=== PATIENT | male | born 1960 | race African-American/Black ===

== ENCOUNTER 2019-01-18 08:17 | Inpatient (IN) | payer OTHER ==
[2019-01-16 17:01] VITALS: BMI 28.6
[2019-01-18] MEDS ORDERED: HEPARIN NA (PORCINE) 5,000 UNITS/ML 1ML VIAL SQ ONE (09:15)
[2019-01-18] MEDS ORDERED: CLINDAMYCIN 900 MG PREMIX IVPB 900 MG/50 ML BAG IVPB ONE (09:30)
--- NOTE | 2019-01-18 09:36 | HP ---
History & Physical Update - History History: No Change - Physical Physical: No Change - Assessment Assessment: No Change - Plan Plan: No Change (Initial H&P completed by Dr. Matias Weinberg on 01/04/19. Complete/accurate and UTD. No new complaints or medication. Here today for elective Robotic prostatectomy.)
[2019-01-18] MEDS ORDERED: ONDANSETRON 4 MG/2 ML VIAL IVPB PRN (11:05)
[2019-01-18] MEDS ORDERED: diphenhydrAMINE HCL 50 MG CAPSULE PO PRN (11:05)
[2019-01-18] MEDS ORDERED: OXYBUTYNIN CHLORIDE 5 MG TABLET PO PRN (11:05)
[2019-01-18] MEDS ORDERED: SODIUM CHLORIDE 1,000 ML IV SCH (11:15)
[2019-01-18] MEDS ORDERED: fentaNYL CITRATE 250 MCG/5 ML VIAL ONE (11:27)
[2019-01-18] MEDS ORDERED: MIDAZOLAM HCL 2 MG/2 ML SINGLE DOSE VIAL ONE (11:27)
[2019-01-18] MEDS ORDERED: BUPIVACAINE HCL/PF 0.5% (5 MG/ML) 30 ML VIAL IJ ONE (11:32)
[2019-01-18] MEDS ORDERED: DESFLURANE GAS 240 ML BOTTLE IH ONE (12:14)
[2019-01-18] MEDS ORDERED: CLINDAMYCIN 900 MG PREMIX BAG IVPB ONE (12:18)
[2019-01-18] MEDS ORDERED: VECURONIUM BROMIDE 10 MG VIAL ONE (12:31)
[2019-01-18] MEDS ORDERED: EPHEDRINE SULFATE/0.9% NACL/PF 50 MG/10 ML SYRINGE NR ONE (14:02)
[2019-01-18] MEDS ORDERED: ePHEDrine SULFATE 50 MG/1 ML AMPULE ONE ×2 (14:03→15:04)
[2019-01-18] MEDS ORDERED: ROCURONIUM BROMIDE 50 MG/5 ML SYRINGE ONE (14:44)
[2019-01-18] MEDS ORDERED: NEOSTIGMINE METHYLSULFATE 0.5 MG/ML - 10 ML MDV ONE (15:04)
[2019-01-18] MEDS ORDERED: GLYCOPYRROLATE 0.2 MG/1 ML VIAL ONE (15:04)
[2019-01-18] MEDS ORDERED: SIMETHICONE 80 MG TAB.CHEW (FP) PO PRN (15:23)
--- NOTE | 2019-01-18 15:58 | OP ---
Operative Note - Note: Operative Date: 01/18/19 Pre-Operative Diagnosis: Prostate Cancer Operation: Robotic prostatectomy, pelvic node dissection Post-Operative Diagnosis: Same as Pre-op Surgeon: Juan Silverio Director Of Global Talent: Silvio Gómez Anesthesiologist/CULINARY ART TEACHER: Jacki Arroyo Anesthesia: General Specimens Removed: Prostate, seminal vesicles, distal urethra (margin) Estimated Blood Loss (mls): 300 Drains & Tubes with Location: MAHESH Drains, Volume Out (mls): 0 (keller) Fluid Volume Replaced (mls): 1,500
[2019-01-18] MEDS ORDERED: LACTATED RINGERS SOLUTION 1,000 ML IV SCH (17:45)
[2019-01-18] MEDS: oxyCODONE HCL 5 MG TABLET PO PRN (18:50)
[2019-01-18] MEDS: ACETAMINOPHEN 1000 MG/100 ML VIAL (NON FORMULARY) IVPB SCH (20:54)
[2019-01-18] MEDS: CLINDAMYCIN 600MG PREMIX IVPB 600 MG/50 ML BAG IVPB SCH (20:54)
[2019-01-18] MEDS: HEPARIN NA (PORCINE) 5,000 UNITS/ML 1ML VIAL SQ SCH (21:13)
[2019-01-18] MEDS: DOCUSATE SODIUM 100 MG CAPSULE (FP) PO SCH (21:13)
--- NOTE | 2019-01-18 21:50 | SURG ---
[facility] Weigh[facility] Note City Weighmaster: Silvio Gómez PA-C Date of Service: 01/18/19 Diagnosis: Prostate Cancer Procedure: Robotic prostatectomy, pelvic lymph node dissection I was present for the entirety of the operative procedure. For further detail, please refer to operative report. Visit type - Case Type Case Type: Scheduled - New patient This patient is new to me today: Yes Date on this admission: 01/18/19
[2019-01-18] MEDS ORDERED: HEPARIN NA (PORCINE) 5,000 UNITS/ML 1ML VIAL SQ SCH (22:00)
[2019-01-19] MEDS: ACETAMINOPHEN 1000 MG/100 ML VIAL (NON FORMULARY) IVPB SCH ×2 (02:24→08:48)
[2019-01-19] MEDS: CLINDAMYCIN 600MG PREMIX IVPB 600 MG/50 ML BAG IVPB SCH ×2 (04:13→12:28)
--- NOTE | 2019-01-19 07:52 | PN ---
Progress Note (short form) - Note Progress Note: POD 1, s/p Robotic prostatectomy, pelvic node dissection Pt seen and examined. Reports pelvic pain overnight. Improved with pain meds. Has not been oob, keller in place. Tolerating clears, no n/v. Denies cp/sob. Feels like he has a lot of gas, has not passed any flatus yet. Vital Signs Temp 98.4 F 01/19/19 06:10 Pulse 62 01/19/19 06:10 Resp 20 01/19/19 06:10 BP 109/69 01/19/19 06:10 Pulse Ox 100 01/18/19 21:00 Intake & Output 01/18/19 01/18/19 01/19/19 11:59 23:59 11:59 Intake Total 1999 1150 Output Total 925 500 Balance 1999 225 -500 Weight 194 lb Intake: IV 2000 700 Normal Saline - 1,000 ml 300 @ 75 mls/hr IV ASDIR JAMAL Rx#:[id number] IVPB 50 Oral 400 Output: Drainage 75 Urine 700 500 Keller 500 Estimated Blood Loss 150 Other: Voiding Method Toilet Bowel Movement No Height 5 ft 9 in Body Mass Index (BMI) 28.6 Weight Measurement Method Stated by Patient Gen: awake, alert, nad Resp: unlabored on RA Abdo: soft, minimally distended, incisions c/d/i, no erythema or drainage. + ttp in pelvic region (appropriate to status). MAHESH in place with 60ml serosanguinous drainage in reservoir, tubing stripped. : Keller in place with faint pink drainage in reservoir, yellow urine in tubing. A/P: 58 y/o M w/ recently diagnosed prostate cancer, now POD 1, s/p Robotic prostatectomy, pelvic node dissection. Mahesh drainage approx 140ml since OR UOP 700ml since OR Of note pt was on carvedilol for trial for prostate cancer (has completed trial ) does not need to continue Cavedilol -F/U AM labs -Mahesh to remain in place until just before discharge this morning/afternoon -KEEP keller in place, do not remove under any circumstances, pt to be discharged with keller -Keller teaching -Monitor UOP and color, contact surgery if any bleeding noted, clots or keller obstruction noted -Pain regimen with Tylenol 1g q6hrs scheduled, Oxy 5mg q6hrs prn -Simethicone prn -Bowel regimen -OOB today -Advance diet to regular diet -DVT prophylaxis with Heparin 5000units sq bid, scds, early ambulation d/w attending Dr Junior
[2019-01-19 09:08] LABS: HEMATOCRIT 38.1 % (35.4-49); HEMOGLOBIN 12.9 GM/dL (11.7-16.9); MCH 30.8 pg (25.7-33.7); MCHC 33.7 g/dl (32.0-35.9); MEAN CELL VOLUME 91.2 fl (80-96); MEAN PLT VOLUME 8.6 fl (7.5-11.1); PLATELET COUNT 191 K/MM3 (134-434); RBC 4.18 M/mm3 (4.00-5.60); RDW 13.7 % (11.9-15.9)
--- NOTE | 2019-01-19 09:15 | DS ---
"Physical Exam: SUBJECTIVE: Patient seen and examined. Reports pelvic pain overnight. Improved with pain meds. Has not been oob, keller in place. Tolerating clears, no n/v. Denies cp/sob. Feels like he has a lot of gas, has not passed any flatus yet. OBJECTIVE: Vital Signs Period Temp Pulse Resp BP Sys/Gaitan Pulse Ox Last 24 Hr 97.7 F-99.1 F 56-92 14-20 102-138/62-88 100-100 PHYSICAL EXAM GENERAL: The patient is awake, alert, and fully oriented, in no acute distress. HEAD: Normal with no signs of trauma. Resp: unlabored on RA Abdo: soft, minimally distended, incisions c/d/i, no erythema or drainage. + ttp in pelvic region (appropriate to status). MAHESH in place with 60ml serosanguinous drainage in reservoir, tubing stripped. : Keller in place with faint pink drainage in reservoir, yellow urine in tubing. LABS Laboratory Results - last 24 hr 01/18/19 01/18/19 08:26 10:10 Blood Type B POSITIVE B POSITIVE Antibody Screen Negative Crossmatch See Detail HOSPITAL COURSE: The patient was admitted to the Med-Surg Unit after an elective surgery for his prostate cancer. Now, s/p robotic assisted radical prostatectomy. Pain management was achieved with a narcotic and non-narcotic oral and IV regimen. POD #1, the patient's diet was advanced. Hemoglobin and hematocrit, and creatinine were monitored as well as vitals. Mahesh drain output was monitored and remained stable, MAHESH was removed POD 1 without issue. I&O's were monitored throughout patients admission, keller remained faint pink in color with no clots , no concern for obstruction. Catrina-operative IV ABX were administered. DVT prophylaxis was achieved with Heparin 5000units sq BID, SCDs and early ambulation. The patient ambulated the halls without issue. Narcotic scripts were checked with [facility] prior to escribe. Keller teaching was done by patients RN. The discharge instructions and an oral pain management plan were reviewed with the patient. All questions answered. Above plan discussed with Dr. Junior and agreed. Date of Admission:01/18/19 Date of Discharge: 01/19/19 Minutes to complete discharge: 20 Discharge Summary Problems reviewed: Yes Reason For Visit: PROSTATE CANCER Condition: Stable - Instructions Diet, Activity, Other Instructions: Prostatectomy Post Operative Instructions Physical activity Resume your normal everyday activity as tolerated no heavy lifting (do not lift greater than 10 pounds) for six weeks. You may walk unlimited amounts and climb stairs. Wound care You may shower 48 hours after surgery. No baths or submerging your incision in water. Do not apply any creams/ointments to your incisions. Diet Continue a clear liquid diet until you are passing flatus, then advance your diet to a regular diet. You were prescribed stool softeners, please take them. This medication will help to avoid straining with bowel movements. Pain management You may take Tylenol (acetaminophen) for pain. You may take 1g (1000mg) every 6 hours. Do not take more than 4g (4000mg) in 24 hours. If you take this dose scheduled, do not continue for longer than 10 days (including your hospital admission) as this can cause liver damage/failure. You have been prescribed narcotic pain medications. Please take as directed. Do not drink alcohol, drive or operate heavy machinery while taking narcotic pain medications. Please make sure to increase your fiber and fluid intake to prevent constipation which is a common side effect of narcotic pain medications. Take your stool softener as directed as constipation (straining and/or hard bowel movements) can lead to bleeding/clots in the urine. Follow-up * Call Dr. Monaco for any of the following: * Severe pain not relieved by medication * Fever of 101 or higher * Excessive bleeding or drainage on dressing * Keller not draining urine for more than 1 hour or it the urine becomes bloody * Call the office at to confirm your follow-up appointment date and time ISTOP: This report was requested by: Mojgan Acharya | Reference #: [id number] Disposition: HOME - Home Medications Comprehensive Discharge Medication List: Ambulatory Orders Acetaminophen [Tylenol -] 1,000 mg PO Q6H PRN #30 tablet 01/18/19 Docusate Sodium [Colace] 100 mg PO BID #60 capsule 01/18/19 Oxybutynin Chloride [Ditropan -] 5 mg PO Q8H PRN #10 tablet.er 01/18/19 oxyCODONE HCL [Roxicodone -] 5 mg PO Q6H PRN 5 Days #15 tablet MDD 4 10/30/19 This patient is new to me today: Yes Date on this admission: 01/24/19 Emergency Visit: No Critical Care patient: No - Discharge Referral Referred to [facility] Med [facility].: No"
[2019-01-19] MEDS: HEPARIN NA (PORCINE) 5,000 UNITS/ML 1ML VIAL SQ SCH (09:35)
[2019-01-19 09:37] LABS: BLOOD UREA NITROGEN 16.8 mg/dL (7-18); CALCIUM 8.1 mg/dL (8.5-10.1); CREATININE 1.4 mg/dL (0.55-1.3)
[2019-01-19] MEDS: DOCUSATE SODIUM 100 MG CAPSULE (FP) PO SCH (10:27)
[2019-01-19] MEDS: oxyCODONE HCL 5 MG TABLET PO PRN (12:09)
--- NOTE | 2019-01-19 12:26 | PROC ---
Procedure Note Procedure: MAHESH drain removed with distal tip intact. Steri strips applied to close ostium. Clean, dry dressing applied. Tolerated well.
[2019-01-19 13:09] VITALS: BP 110/70; PULSE 72; TEMP 98.1
--- NOTE | 2019-01-19 18:17 | OPR ---
Date of Surgery: 01/19/19 Pre-Procedure Information Pre-op Diagnosis:Prostate cancer [C61] Procedure Information Procedure(s): PROSTATECTOMY LAPAROSCOPIC RADICAL ROBOTIC SI Anesthesia:General Surgeon(s) and Role: * Juan Silverio MD - Primary Acting Professor: JEAN CLAUDE Anguiano Procedure Description Indications:Prostate cancer Findings:left nerve sparing; right partial nerve sparing posterior distal margin negative for cancer - BPH Vesicourethral anastamosis with 3-0 Vloc. Procedure Details: The patient was prepped and draped in the usual fashion and placed in modified lithotomy position. All pressure points were padded and the patient was secured to the table. 16Fr keller catheter was inserted. A supraumbilical incision was made. Veress needle was introduced. The abdomen was insufflated to 15 mmHg. A 12 mm non-bladed trocar was introduced. The abdomen was inspected. There was no evidence of injury on entry. Two robotic trocars were placed in the right lower quadrant, one in the left lower quadrant, and an medical claims assistant 12 mm nonbladed AirSeal trocar was introduced two fingerbreadths above the anterior superior iliac spine on the left. The patient was placed in steep Trendelenburg. The AirSeal system was initiated and maintained at 13 mmHg, and the robot was brought in and docked into place.Sigmoid adhesions were taken down with cold scissors.The medial umbilical ligaments were divided. The space of Retzius was developed. Superficial dorsal vein was divided with electrocatuery. Puboprostatic ligaments were divided. Endopelvic fascia was incised. The dorsal vein complex was controlled using 0 Vicryl figure-of-8 suture. The prostatovesical junction was divided using electrocautery. Vas deferens were identified, fulgurated, and divided. Seminal vesicles were dissected free of attachments. The posterior Denonvilliers fascia was divided. The rectum was peeled off the posterior aspect of the prostate as far down as possible. Bilateral prostatic pedicles were taken using Hem-o-lock clips and divided. Neurovascular bundleswere spared - left nerve sparing; right partial nerve sparing.The apex was dissected under direct vision. The anterior and posterior urethra were then divided. Finally, fibers of the posterior fibrous raphe were divided and the prostate was detached.Bilateral pelvic lymph node dissections were carried out removing the obturator and external iliac lymph node packet. At the end of the dissection, the external iliac vessels and the obturator nerve were intact with no evidence of injury. A 3-0 V-loc suture was used in the vesicourethral anastomosis from 6 o'clock to 12 o'clock clockwise and counterclockwise and tied in the middle. Irrigation with a new 18Fr foleyrevealedno leak. Balloon was inflated with 10cc.A MAHESH drain was placed and brought out the most lateral right-sided trocar incision and tied to the skin using 3-0 Nylon. The right pelvic lymph nodes and prostate were sent in endocatch bag . The robot was undocked and removed. The patient was taken out of Trendelenburg. The prostate was then removed from an extension of the umbilical trocar. Fascia was closed using figure of 8 0-vicryl suture. The skin was closed using 4-[address] Silverio was present and scrubbed for duration of case. Estimated Blood Loss: 150 ml
--- NOTE | 2019-01-25 13:21 | PATH ---
Surgical Pathology Report Patient Name: MALICK SESAY [facility]. Rec. #: [id number] /Age/Gender: 1960 (Age: 58) / M Account: [id number] Location: [address] [place] [address]/[facility] Taken: 01/18/2019 Received: 01/18/2019 Reported: 01/25/2019 Physicians: Juan Silverio M.D. Specimen(s) Received A: DISTAL URETHRA B: PRE-PROSTATIC FAT C: RIGHT PELVIC LYMPH NODE D: LEFT PELVIC LYMPH NODE E: PROSTATE WITH SEMINAL VESICLE Clinical History Prostate cancer Intraoperative Consult Diagnosis A. Distal urethra, frozen section: Prostatic tissue; no invasive carcinoma in the material. Kulwinder Jiménez M.D., 01/18/2019 Final Diagnosis A. DISTAL URETHRAL FOR FROZEN (FS): BENIGN PROSTATIC AND FIBROCONNECTIVE TISSUE, NEGATIVE FOR CARCINOMA. B. PRESTATIC FAT, EXCISION: ADIPOSE TISSUE, NEGATIVE FOR CARCINOMA. C. RIGHT PELVIC LYMPH NODE, EXCISION: TWO LYMPH NODES, NEGATIVE FOR METASTATIC CARCINOMA (0/2). D. LEFT PELVIC LYMPH NODE, EXCISION: SIX LYMPH NODES, NEGATIVE FOR METASTATIC CARCINOMA (0/6) E. PROSTATE AND SEMINAL VESICLES, RADICAL PROSTATECTOMY: PROSTATIC ADENOCARCINOMA, ACINAR TYPE, MARQUITA SCORE 3+4 =7, GRADE GROUP 2. TUMOR VOLUME: APPROXIMATELY 2.5% OF PROSTATE. BILATERAL SEMINAL VESICLE, NEGATIVE FOR CARCINOMA INVOLVEMENT. EXTRAPROSTATIC EXTENSION NOT PRESENT. LYMPHOVASCULAR INVASION NOT IDENTIFIED. PERINEURAL INVASION IDENTIFIED. SURGICAL MARGINS ARE NEGATIVE FOR CARCINOMA. PATHOLOGIC STAGE (pTNM): pT2 pN0 SEE SURGICAL PATHOLOGY CANCER CASE SUMMARY BELOW. Comment: Immunohistochemistry stain p63 (block E3, E19 and E24) performed and interpreted at [facility] shows loss of basal layer in the areas of carcinoma. Positive and negative controls (internal if applicable) show appropriate results. Comments Surgical Pathology Cancer Case Summary Procedure _x_ Radical prostatectomy +Prostate Size + Weight: (grams) 59g + Size (centimeters): 4.2 x 4.0 x 3.6 cm Histologic Type _x_ Acinar adenocarcinoma Histologic Grade Grade Group and Elkins Score _x_ Grade group 2 (Marquita Score 3+4=7) Percentage of Pattern 4 in Elkins Score 7 (3+4, 4+3) Cancer: 30% + Intraductal Carcinoma (IDC) + _x_ Not identified + Tumor Quantitation + Estimated percentage of prostate involved by tumor: 2.5% Extraprostatic Extension (EPE) _x_ Not identified Urinary Bladder Neck Invasion _x_ Not identified Seminal Vesicle Invasion _x_ Not identified + Lymphovascular Invasion + _x_ Not identified + Perineural Invasion + _x_ Present Margins _x_ Uninvolved by invasive carcinoma Treatment Effect _x_ No known presurgical therapy Regional Lymph Nodes Lymph Node Examination Number of Lymph Nodes Involved: 0 Number of Lymph Nodes Examined: 8 Pathologic Stage Classification (pTNM, AJCC 8th Edition) Primary Tumor (pT) _x_ pT2: Organ confined Regional Lymph Nodes (pN) _x_ pN0: No positive regional nodes + Additional Pathologic Findings + _x_ High-grade prostatic intraepithelial neoplasia (PIN) + _x_ Nodular prostatic hyperplasia + _x_ Acute and chronic prostatitis Electronically Signed Gavino Jiménez M.D. Gross Description A. Received fresh labeled "distal urethra," is a 1.0 x 0.8 x 0.3 cm paul-pink portion of soft tissue. The specimen is entirely submitted for frozen section. The frozen section residue is entirely submitted in one cassette. B. Received in formalin labeled "pre-prostatic fat," is a 3.5 x 2.5 x 0.3 cm aggregate of yellow, lobulated adipose tissue. The specimen is entirely submitted in 2 cassettes. C. Received in formalin labeled "right pelvic lymph node," is a 6.0 x 5.0 x 0.9 cm aggregate of yellow, lobulated adipose tissue. Sectioning reveals 2 lymph nodes measuring 0.7 x 0.6 x 0.3 cm and is 3.8 x 1.0 x 0.6 cm. The larger lymph node is bisected and the lymph nodes are entirely submitted in 3 cassettes as follows: 1-smaller whole lymph node; 8-5-ayuyjhlb larger lymph node. D. Received in formalin labeled "left pelvic lymph node," is a 7.0 x 6.5 x 0.9 cm aggregate of yellow, lobulated adipose tissue. Sectioning reveals possible multiple lymph nodes ranging from 0.5-2.2 cm in greatest dimension. The lymph nodes are entirely submitted in 6 cassettes as follows: 1-one whole lymph node; 2-one whole lymph node; 3 4-one bisected lymph node; 5-6-one bisected lymph node. E. Received in formalin labeled "prostate with seminal vesicles," is a 59 g radical prostatectomy specimen measuring 4.0 cm from apex to base, 4.2 cm from left to right and 3.6 cm from anterior to posterior. The left vas deferens measures 1.2 cm in length and the right vas deferens measures 1.7 cm in length. The left seminal vesicle measures 3.2 x 0.9 x 0.5 cm and the right seminal vesicle measures 3.6 x 1.2 x 0.5 cm. The outer surface of the prostate is paul and predominantly smooth with focal adhesions. The left side of the specimen is inked green and the right side is inked red. The specimen is serially sectioned from apex to base. Sectioning reveals a 3.8 x 3.0 x 2.4 centimeter area of light paul nodular parenchyma surrounding the urethra and focally abutting the outer capsule. The remaining parenchyma, predominantly in the posterior aspect of the specimen, is paul-yellow. Wire Wheeler sections are submitted in 37 cassettes as follows: 1-coned right apex; 2-coned left apex; 3-9-right anterior sequentially submitted from apex to base; 10-16-left anterior sequentially submitted from apex to base; 17-23-right posterior sequentially submitted from apex to base; 24-30-left posterior sequentially submitted from apex to base; 31-coned right base; 32-coned left base; 33-right and left vas deferens margins; 34-35-right seminal vesicle; 36-37-left seminal vesicle. 01/18/[address] [facility]01/18/2019
== END 2019-01-19 14:39 | disposition home or self-care (01) | DRG 484 ==
LOC: JSAMEDAYSX 08:17 → J6S 17:56
PROVIDERS: ADMIT Student in an Organized Health Care Education/Training Program; ATTEND Student in an Organized Health Care Education/Training Program
PROC: 8E0W4CZ Robotic Assisted Procedure of Trunk Region, Percutaneous Endoscopic Approach (ICD-10-PCS; 2019-01-18)
PROC: 07BC4ZX Excision of Pelvis Lymphatic, Percutaneous Endoscopic Approach, Diagnostic (ICD-10-PCS; 2019-01-18)
PROC: 0VT04ZZ Resection of Prostate, Percutaneous Endoscopic Approach (ICD-10-PCS; principal; 2019-01-18 10:30)
DX: C61 Malignant neoplasm of prostate (principal); N40.0 Benign prostatic hyperplasia without lower urinary tract symptoms
CPT/HCPCS: 36415; 80048; 85027; 86850; 86900; 86901; 86922; 88304-TC; 88305-TC; 88307-TC; 88331-TC; 94010; 94760; J0131; J1644; J7030